=== PATIENT | male | born 1945 | race Two or more races ===

== ENCOUNTER 2017-04-02 06:00 | Day surgery (SDC) | payer OTHER ==
[~2017-04-02 06:00] MED LIST: ACETAZOLAMIDE 250 MG PO ONE
[2017-04-02] MEDS: PROPARACAINE HCL 0.5% OPHTHALMIC SOL ONE ×3 (06:11→07:36)
[2017-04-02] MEDS: PHENYLEPHRINE HCL 10% OPHTHAL SOL ONE ×2 (06:12→06:24)
[2017-04-02] MEDS: CYCLOPENTOLATE 1% SOL ONE ×2 (06:12→06:25)
[2017-04-02] MEDS: KETOROLAC 0.5% OPTH 60 DROP SOL ONE ×2 (06:13→06:25)
[2017-04-02] MEDS ORDERED: MIDAZOLAM 2 MG/2 ML SOL ONE (07:06)
[2017-04-02] MEDS ORDERED: POVIDONE IODINE 5% SOL ONE (07:10)
[2017-04-02] MEDS ORDERED: BSS 500 ML 500 ML IR ONE (07:10)
[2017-04-02] MEDS ORDERED: LIDOCAINE HCL 1% MPF SOL ONE (07:10)
[2017-04-02 08:11] VITALS: BP 120/73; PULSE 63; RESP 18; TEMP 96.6; O2SAT 97
== END 2017-04-02 08:25 | disposition home or self-care (01) | DRG 125 ==
LOC: SURG 06:00
PROVIDERS: ATTEND Ophthalmology
DX: H25.9 Unspecified age-related cataract (principal)
CPT/HCPCS: J2250; J2001

== ENCOUNTER 2017-05-27 06:50 | Day surgery (SDC) | payer OTHER ==
[2017-05-27] MEDS ORDERED: ACETAZOLAMIDE 250 MG PO ONE (07:03)
[2017-05-27] MEDS: PROPARACAINE HCL 0.5% OPHTHALMIC SOL ONE ×3 (07:15→08:31)
[2017-05-27] MEDS: PHENYLEPHRINE HCL 10% OPHTHAL SOL ONE ×2 (07:16→07:28)
[2017-05-27] MEDS: CYCLOPENTOLATE 1% SOL ONE ×2 (07:17→07:28)
[2017-05-27] MEDS: KETOROLAC 0.5% OPTH 60 DROP SOL ONE ×2 (07:17→07:29)
[2017-05-27] MEDS ORDERED: FENTANYL 100MCG/2ML SOL ONE (08:12)
[2017-05-27] MEDS ORDERED: MIDAZOLAM 2 MG/2 ML SOL ONE (08:12)
[2017-05-27] MEDS ORDERED: POVIDONE IODINE 5% SOL ONE (08:27)
[2017-05-27] MEDS ORDERED: BSS 500 ML 500 ML IR ONE (08:27)
[2017-05-27] MEDS ORDERED: LIDOCAINE HCL 1% MPF SOL ONE (08:27)
[2017-05-27 09:04] VITALS: BP 115/67; PULSE 69; RESP 20; TEMP 97; O2SAT 98
== END 2017-05-27 09:15 | disposition home or self-care (01) | DRG 125 ==
LOC: SURG 06:50
PROVIDERS: ATTEND Ophthalmology
DX: H25.9 Unspecified age-related cataract (principal)
CPT/HCPCS: J2250; J3010; A9270-GY; J2001